=== PATIENT | female | born 1935 | race Caucasian/White ===

== ENCOUNTER 2020-11-23 12:02 | Emergency (ER) | payer MEDICARE ==
[~2020-11-23] VITALS: Ht 152.4 cm; Wt 54.0 kg
--- NOTE | 2020-11-23 12:02 | NUR ---
Pt arrived from EMS, changed into gown, able to ambulate with standby assist from gurney to bed with steady gait, denies MCGOWAN/SOB/CP/recent illness. 12 lead EKG done, placed on continuous bedside monitor and aware of need for UA sample if she feels she needs to use the restroom while here awaiting MD assesssment. business unit director completed. Call light in reach and warm blanket provided.
--- NOTE | 2020-11-23 12:38 | NUR ---
at bedside, awaiting MD assessment and orders.
--- NOTE | 2020-11-23 12:56 | NUR ---
Pt's asked about home medications per pt request on arrival. Med rec completed with noted new meds: Levothyroxine and Tramadol. Pt took Tramadol last night and this A.M. for back pain and took first dose of thyroid medication ths A.M. as well. Pt still waiting for MD assessment, noted she is next in line barring a critical pt arrival, and pt/family updated to this.
[2020-11-23] MEDS ORDERED: SIMV20TA19 PO (12:59)
[2020-11-23] MEDS ORDERED: LEVO25TA2 PO (12:59)
[2020-11-23] MEDS ORDERED: AMLO-150 PO (12:59)
[2020-11-23] MEDS ORDERED: TRAM50TA2 PO (12:59)
--- NOTE | 2020-11-23 13:02 | NUR ---
at bedside for exam.
[2020-11-23 13:31] LABS: BASOPHILS % (AUTO) 1 % (0-1); EOSINOPHILS % (AUTO) 2 % (1-7); LYMPHOCYTES % (AUTO) 24 % (22-44); MEAN CORPUSCULAR HEMOGLOBIN 31.5 pg (27.0-34.8); MEAN CORPUSCULAR HGB CONC 33.7 g/dL (32.4-35.8); MEAN PLATELET VOLUME 6.7 fL (7.4-10.4); MONOCYTES % (AUTO) 8 % (2-9); NEUTROPHILS % (AUTO) 65 % (42-75); PLATELET COUNT 299 x10^3/uL (130-400); RED BLOOD COUNT 3.86 x10^6/uL (3.82-5.3); RED CELL DISTRIBUTION WIDTH 13.8 % (9.6-15.2)
--- NOTE | 2020-11-23 13:35 | NUR ---
Pt assisted to restroom for UA sample and then back to room. Crista Leach RN updated on plan of care and pt c/o for meal break and care transferred. UA sent to lab by Crista.
--- NOTE | 2020-11-23 13:42 | NUR ---
PT back resting in bed after assistance to bathroom for urine sample
[2020-11-23 13:44] LABS: ALANINE AMINOTRANSFERASE 35 U/L (12-78); ALBUMIN 3.4 g/dL (3.4-5.0); ANION GAP 4 mmol/L (5-15); CALCIUM 9.9 mg/dL (8.5-10.1); CHLORIDE 101 mmol/L (98-107); CREATININE 0.66 mg/dL (0.55-1.02)
[2020-11-23 13:47] LABS: MICROSCOPIC AUTO
[2020-11-23 13:48] LABS: ALKALINE PHOSPHATASE 71 U/L (45-117); BILIRUBIN,TOTAL 0.5 mg/dL (0.2-1.0); TOTAL PROTEIN 6.9 g/dL (6.4-8.2); TROPONIN I < 0.015 ng/mL (0.000-0.045)
--- NOTE | 2020-11-23 14:10 | NUR ---
Pt in bed without change in condition. Report received from Crista, and care reassumed.
--- NOTE | 2020-11-23 14:23 | NUR ---
Lab results reviewed and chart marked for recheck by . Pt/ updated to process and status for recheck.
--- NOTE | 2020-11-23 14:46 | NUR ---
VS placed, undone secondary to thinking these were placed on the wrong pt, then placed again.
--- NOTE | 2020-11-23 15:03 | NUR ---
psych tech at bedside to perform orthostatic VS as ordered by MD. MD states possible tele admit in note o ED board.
--- NOTE | 2020-11-23 15:12 | NUR ---
Pt with 30mmHg decrease in SBP with HR increase by 10bpm during orthostatics from sitting to standing position. All VS documented by fisheries technical officer.
--- NOTE | 2020-11-23 15:30 | NUR ---
MD at bedside to discuss findings and suggested plan of care.
--- NOTE | 2020-11-23 15:50 | NUR ---
Med requested from pharmacy as [facility] does not carry Levaquin 500mg tabs, only 750mg tabs. Pt updated and aware of delay. IV d/c'd and pt getting dressed awaiting d/c paperwork and medication.
[2020-11-23] MEDS ORDERED: LEVOFLOXACIN 500 MG TABLET PO ONE (16:00)
[2020-11-23] MEDS ORDERED: PLEASE ENTER HEIGHT AND WEIGHT MC SCH (16:00)
--- NOTE | 2020-11-23 16:24 | NUR ---
Med received from pharmacy and given to pt. Pt d/c'd and ambulatory to d/c desk with .
[2020-11-23 16:26] VITALS: BP 117/75
== END 2020-11-23 16:28 | disposition home or self-care (01) ==
LOC: ED 13:03
DX: R55 Syncope and collapse (principal)
CPT/HCPCS: 36415; 80053; 81001; 83605; 84484; 85025; 87086; 93005; 99285

== ENCOUNTER 2020-12-21 12:41 | Observation (INO) | payer MEDICARE ==
[~2020-12-21] VITALS: Ht 152.4 cm; Wt 47.4 kg
[~2020-12-21 12:41] MED LIST: AMLO-150 PO; LEVO25TA2 PO; SIMV20TA19 PO; TRAM50TA2 PO
--- NOTE | 2020-12-21 12:55 | NUR ---
PT. ARRIVES BY [facility] WITH C/O A SYNCOPAL EPISODE TODAY WHILE AT [facility]. PT. STATES SHE FELT WARM PRIOR TO THE EPISODE. SHE HAD A SIMILAR EVENT 1 MONTH AGO AND WAS HYPOGLYCEMIC. PT.'S BGL WAS 124 BY EMS. THEY ESTABLISHED IV ACCESS, @20G IN HER RAC, SALES REPRESENTATIVE GROCERIES. PT. HAS THE CP MONITOR IN PLACE AND A 12 LEAD IS BEING DONE. HER LUNGS ARE CTA. RESP ARE EUPNEIC WITH SATS 95% ON RA. S1S2 NOTED WITHOUT MURMURS, RUBS OR GALLOPS. PT.'S ABD. IS SOFT AND FLAT WITH BS + X 4 QUADS. SIDERAILS REMAIN UP X 2. SHE IS NEGATIVE FOR STROKE S/S AND LUEVANO WNL. CALL LIGHT IS IN REACH. REPORT TO VISHAL MESSINA.
--- NOTE | 2020-12-21 13:05 | NUR ---
RECEIVED REPORT FROM IAN MESSINA. PT UPRIGHT ON GURNEY AWAKE & COMFORTABLE, RESPONDS APPROP TO STAFF, NAD, NO NEEDS AT THIS TIME, FAMILY AT BS, CALL LIGHT WITHIN REACH.
[2020-12-21] MEDS ORDERED: SODIUM CHLORIDE 0.9% 1,000 ML IV ONE (13:30)
[2020-12-21] MEDS ORDERED: SODIUM CHLORIDE FLUSH 10ML SYR IVF ONE (13:30)
[2020-12-21 13:42] LABS: BASOPHILS % (AUTO) 1 % (0-1); EOSINOPHILS % (AUTO) 4 % (1-7); LYMPHOCYTES % (AUTO) 18 % (22-44); MEAN CORPUSCULAR HEMOGLOBIN 31.8 pg (27.0-34.8); MEAN CORPUSCULAR HGB CONC 34.2 g/dL (32.4-35.8); MEAN PLATELET VOLUME 6.7 fL (7.4-10.4); MONOCYTES % (AUTO) 7 % (2-9); NEUTROPHILS % (AUTO) 70 % (42-75); PLATELET COUNT 318 x10^3/uL (130-400); RED BLOOD COUNT 4.27 x10^6/uL (3.82-5.3); RED CELL DISTRIBUTION WIDTH 14.1 % (9.6-15.2)
[2020-12-21 13:52] LABS: ALANINE AMINOTRANSFERASE 40 U/L (12-78); ALBUMIN 3.7 g/dL (3.4-5.0); ANION GAP 4 mmol/L (5-15); CHLORIDE 101 mmol/L (98-107); CREATININE 0.91 mg/dL (0.55-1.02)
[2020-12-21 13:57] LABS: ALKALINE PHOSPHATASE 70 U/L (45-117); BILIRUBIN,TOTAL 0.4 mg/dL (0.2-1.0); TOTAL PROTEIN 7.6 g/dL (6.4-8.2); TROPONIN I < 0.015 ng/mL (0.000-0.045)
--- NOTE | 2020-12-21 13:57 | NUR ---
PT REMAINS UPRIGHT ON GURNEY AWAKE & COMFORTABLE, RESPONDS APPROP TO STAFF, NAD, COMFORT MEASURES PROVIDED, AT BS, CALL LIGHT WITHIN REACH.
--- NOTE | 2020-12-21 14:59 | NUR ---
PT UPRIGHT ON GURNEY AWAKE & COMFORTABLE, WATCHING TV, RESPONDS APPROP TO STAFF, NAD, NO NEEDS AT THIS TIME, AT BS, CALL LIGHT WITHIN REACH.
[2020-12-21] MEDS ORDERED: SODIUM CHLORIDE FLUSH 10ML SYR IVF PRN (15:30)
--- NOTE | 2020-12-21 16:02 | NUR ---
PT REMAINS UPRIGHT ON GURNEY AWAKE & COMFORTABLE, WATCHING TV, RESPONDS APPROP TO STAFF, NAD, NO NEEDS AT THIS TIME, [facility] AT BS FOR EVAL, ALSO AT BS, CALL LIGHT WITHIN REACH.
--- NOTE | 2020-12-21 17:02 | NUR ---
PT LAYING ON GURNEY WITH EYES CLOSED & TV ON, RESPONDS APPROP TO STAFF, NAD, NO NEEDS AT THIS TIME, FAMILY AT - BROUGHT DINNER FOR PT, CALL LIGHT WITHIN REACH.
--- NOTE | 2020-12-21 17:53 | NUR ---
Pt to be admitted to [facility], room 403-2. Report called to GEORGE.
--- NOTE | 2020-12-21 18:02 | NUR ---
PT UPRIGHT ON GURNEY AWAKE & COMFORTABLE, WATCHING TV, ATE DINNER FAMILY BROUGHT HER, RESPONDS APPROP TO STAFF, NAD, NO NEEDS AT THIS TIME, AT BS, CALL LIGHT WITHIN REACH.
[2020-12-21 18:37] VITALS: BP 171/73
[2020-12-21 20:42] LABS: MICROSCOPIC AUTO
[2020-12-21 21:57] VITALS: BP 171/73
[2020-12-22 01:26] VITALS: BP 164/67
[2020-12-22 09:06] VITALS: BP 155/75
[2020-12-22] MEDS ORDERED: AMLODIPINE 2.5 MG TABLET PO SCH (12:30)
[2020-12-22 14:52] VITALS: BP 154/83
[2020-12-22] MEDS ORDERED: SIMVASTATIN 20 MG TABLET PO SCH (21:00)
[2020-12-23] MEDS ORDERED: LEVOTHYROXINE 25 MCG TABLET PO SCH (06:00)
== END 2020-12-22 16:30 | disposition home or self-care (01) ==
LOC: MERGE 12:41 → EDBD 12:41 → ED 15:54 → EDIP 16:32 → INTOOBSV 16:32 → 4WST 18:21
PROVIDERS: ADMIT Hospitalist; ATTEND Hospitalist
DX: R55 Syncope and collapse (principal); E21.3 Hyperparathyroidism, unspecified; E78.5 Hyperlipidemia, unspecified; E03.9 Hypothyroidism, unspecified; S22.089A Unspecified fracture of T11-T12 vertebra, initial encounter for closed fracture; S01.81XD Laceration without foreign body of other part of head, subsequent encounter; I10 Essential (primary) hypertension; G89.29 Other chronic pain; M54.9 Dorsalgia, unspecified; R94.31 Abnormal electrocardiogram [ECG] [EKG]; I65.23 Occlusion and stenosis of bilateral carotid arteries; I51.7 Cardiomegaly; E87.1 Hypo-osmolality and hyponatremia; W01.0XXA Fall on same level from slipping, tripping and stumbling without subsequent striking against object, initial encounter; Y92.22 Religious institution as the place of occurrence of the external cause; Y93.89 Activity, other specified; Z91.81 History of falling; Z79.899 Other long term (current) drug therapy
CPT/HCPCS: 36415; 71045; 80053; 81001; 83880; 84443; 84484; 85025; 87086; 93005; 93306; 93356; 93880; 96360; 96361; 97163; 97165; 99285; G0378; J7030

== ENCOUNTER 2021-01-17 08:45 | Emergency (ER) | payer MEDICARE ==
[~2021-01-17] VITALS: Ht 147.3 cm; Wt 49.9 kg
--- NOTE | 2021-01-17 09:25 | NUR ---
THIS IS A 85 YEAR OLD FEMALE WHO C.O SIGNED IN FOR "CONFUSION"; HAS HAD CONFUSION IN MORNINGS FOR PAST FEW WEEKS, WORSE THIS AM; "JUST NOT HERSELF"; PT STATED TO "I THINK I'M GOING TO TODAY" LAST 'NORMAL' LAST PM ALSO 1 YR HISTORY SHORT-TERM MEMORY SYMPTOMS PT STATES IS HERE FOR BACK PAIN (BACK INJURY 8 MONTHS AGO WITH CHRONIC PAIN) DOES STATE WORSENING MOBILITY
[2021-01-17 09:46] LABS: MICROSCOPIC AUTO
[2021-01-17 10:08] LABS: BASOPHILS % (AUTO) 0 % (0-1); EOSINOPHILS % (AUTO) 7 % (1-7); LYMPHOCYTES % (AUTO) 35 % (22-44); MEAN CORPUSCULAR HEMOGLOBIN 31.3 pg (27.0-34.8); MEAN PLATELET VOLUME 6.5 fL (7.4-10.4); MONOCYTES % (AUTO) 8 % (2-9); NEUTROPHILS % (AUTO) 50 % (42-75); PLATELET COUNT 314 x10^3/uL (130-400); RED BLOOD COUNT 3.92 x10^6/uL (3.82-5.3); RED CELL DISTRIBUTION WIDTH 13.9 % (9.6-15.2)
[2021-01-17 10:19] LABS: ALBUMIN 3.7 g/dL (3.4-5.0); ANION GAP 9 mmol/L (5-15); CALCIUM 10.7 mg/dL (8.5-10.1); CHLORIDE 98 mmol/L (98-107); CREATININE 0.64 mg/dL (0.55-1.02)
--- NOTE | 2021-01-17 10:36 | NUR ---
PT VISITING WITH DAUGHTER, VERBALIZED NO NEEDS AT THIS TIME DISCUSSED PLAN OF CARE
--- NOTE | 2021-01-17 12:13 | NUR ---
REPORT TO VISHAL MESSINA, PLAN OF CARE DISCUSSED.
--- NOTE | 2021-01-17 12:13 | NUR ---
RECEIVED REPORT FROM JONATHAN MESSINA. PT LAYING ON GURNEY WITH EYES CLOSED, AWAKENS & RESPONDS APPROP TO STAFF WITH VERBAL STIMULI, NAD, NO NEEDS AT THIS TIME, CALL LIGHT WITHIN REACH.
--- NOTE | 2021-01-17 13:02 | NUR ---
PT UPRIGHT ON GURNEY AWAKE & COMFORTABLE, RESPONDS APPROP TO STAFF WITH VERBAL STIMULI, NAD, COMFORT MEASURES PROVIDED, AT BS, CALL LIGHT WITHIN REACH.
[2021-01-17 13:26] LABS: TROPONIN I < 0.015 ng/mL (0.000-0.045)
[2021-01-17 14:01] VITALS: BP 155/83
--- NOTE | 2021-01-17 14:01 | NUR ---
PT REMAINS UPRIGHT ON GURNEY AWAKE & COMFORTABLE, RESPONDS APPROP TO STAFF WITH VERBAL STIMULI, NAD, NO NEEDS AT THIS TIME, AT BS AWAITING POC UPDATE FROM ERP, CALL LIGHT WITHIN REACH.
--- NOTE | 2021-01-17 14:59 | NUR ---
Patient & given discharge instructions and they have confirmed that they understand the instructions. Patient ambulatory with steady gait. NAD, all questions answered appropriately, denies additional needs at this time. No personal belongings left in room after discharge.
== END 2021-01-17 15:01 | disposition home or self-care (01) ==
LOC: ED 09:15
DX: R41.82 Altered mental status, unspecified (principal); R53.1 Weakness; R51.9 Headache, unspecified; R07.89 Other chest pain; R94.31 Abnormal electrocardiogram [ECG] [EKG]; I10 Essential (primary) hypertension; E03.9 Hypothyroidism, unspecified
CPT/HCPCS: 36415; 70450; 71045; 80048; 81001; 82040; 84484; 85025; 87077; 87086; 93005; 99285

== ENCOUNTER 2021-02-11 18:17 | Emergency (ER) | payer MEDICARE ==
[~2021-02-11] VITALS: Ht 149.9 cm; Wt 50.0 kg
[2021-02-11 23:01] VITALS: BP 143/76
== END 2021-02-11 23:03 | disposition home or self-care (01) ==
LOC: ED 19:00
DX: R55 Syncope and collapse (principal); R94.31 Abnormal electrocardiogram [ECG] [EKG]; I10 Essential (primary) hypertension; E03.9 Hypothyroidism, unspecified
CPT/HCPCS: 36415; 80053; 81001; 85025; 87086; 93005; 96360; 99285; J7030